=== PATIENT | male | born 1955 | race Caucasian/White ===

== ENCOUNTER 2020-01-24 15:24 | Inpatient (IN) ==
--- NOTE | 2020-01-24 15:51 | Emergency Department Note ---
Impression & Plan Bright red rectal bleeding ED Provider Note NAME: FIORELLA HERNANDEZ AGE: 64 SEX: M ARRIVES VIA: Walk-In INFORMANT: [Patient][, ] ED PROVIDER(S): Lucas Palmer MD CHIEF COMPLAINT: GI bleed PLAN: Disposition: Admitted Condition: [Good] MEDICAL DECISION MAKING: Patient presented to the ER because of acute lower GI bleeding. He had heme positive stools. Hemoglobin and white blood cell count were stable on laboratory testing. Normal platelets. His INR is slightly supratherapeutic at 3.5. Chemistry panel was unremarkable. The patient is hemodynamically stable. I did discuss the case with GI, Dr. Sanz. He recommended admission and serial monitoring of H&H. Patient was updated. He agreed with admission. [facility]. The patient was evaluated in the ER for further management. Triage Nursing notes reviewed and agree them. Vital Signs: reviewed and remarkable for [no significant abnormalities] Differential diagnosis: Diverticulosis, AVM, coagulopathy, colitis, inflammatory bowel disease, malignancy, Daniela-Combs tear, esophagitis, peptic ulcer disease, variceal bleed, gastritis, epistaxis, fissure, hemorrhoids, as well as other pathologies. ER treatment provided: Saline hydration Diagnostics interpreted by me: Cardiac Monitoring: Cardiac monitoring ordered by me: The patient was placed on continuous cardiac monitoring and observed. It revealed a normal sinus rhythm at 90 beats per minute without ectopy or evidence of dysrhythmia. Consultation(s): GI Internal medicine HPI: The patient is a 64 year old male who presents to the Emergency Room with complaints of rectal bleeding. This started this morning and is continuing. The patient also notes the following associated symptoms, loose stool. The patient has taken no medication relieving factors. Current pain is rated as 0/10. Pt denies LOC, headache, fevers, chills, diaphoresis, visual changes, neck pain, chest pain, breathing difficulties, nausea, vomiting, abdominal pain, back pain, melena, urinary symptoms, numbness, weakness, lymphadenopathy, rash, or other complaints. ROS: See above HPI for pertinent positives & negatives. A total of [10] systems reviewed and were otherwise negative. PAST MEDICAL HISTORY:[See Below] CAD, DVT PAST SURGICAL HISTORY:[See Below]coronary stent FAMILY HISTORY:[See Below] SOCIAL HISTORY:[See Below] no tobacco HOME MEDICATIONS:[See Below] ALLERGIES:[See Below] VITALS:[See Below] PHYSICAL EXAMINATION: GENERAL: Awake, alert, well-appearing, in no distress HENT: Normocephalic, atraumatic. Oropharynx unremarkable. EYES: Normal conjunctiva. Sclera non-icteric. NECK: Inspection normal. Non-tender. Supple. No nuchal rigidity. FROM. No masses. RESPIRATORY: Clear to auscultation. No wheezes. No rales. Normal respiratory effort. CARDIAC: Normal rate. Normal rhythm. No murmurs. No rubs. Extremities warm and well perfused. Pulses equal. No JVD. GI: Soft, non-distended. No tenderness to palpation. No rebound or guarding. No masses. RECTAL: Deferred. MUSCULOSKELETAL: Atraumatic. Chest examination reveals no tenderness. The back is symmetrical on inspection without obvious abnormality. There is no CVA tenderness to palpation. No joint edema. LOWER EXTREMITIES: Calves are equal size bilaterally and non-tender. No edema. No discoloration. NEURO: Normal sensorium. No sensory or motor deficits noted. SKIN: No rash or jaundice noted. ED COURSE: [Critical Care:] [None] Lucas Palmer MD Past Med/Surg History Social History Feels Safe at Home: Yes Smoking Status: Former smoker Allergies Allergies Allergy/AdvReac Type Severity Reaction Status Date / Time No Known Allergies Allergy Unknown Verified 01/24/20 16:19 Home Meds Home Medications Medication Instructions Recorded Confirmed acetaminophen [Tylenol Extra 500 - 1,000 mg PO Q6H PRN 01/24/20 01/24/20 Strength] aspirin [Aspir-81] 81 mg PO DAILY 01/24/20 01/24/20 atorvastatin [Lipitor] 80 mg PO DAILY 01/24/20 01/24/20 cyanocobalamin (vitamin B-12) 1,000 mcg PO DAILY 01/24/20 01/24/20 [Vitamin B-12] empagliflozin [Jardiance] 25 mg PO DAILY 01/24/20 01/24/20 fenofibrate nanocrystallized 48 mg PO DAILY 01/24/20 01/24/20 [Tricor] furosemide [Lasix] 20 mg PO DAILY 01/24/20 01/24/20 glimepiride [Amaryl] 2 mg PO DAILY 01/24/20 01/24/20 isosorbide mononitrate 30 mg PO DAILY 01/24/20 01/24/20 lactobacillus combination no.4 3,000 mmu cells PO DAILY 01/24/20 01/24/20 [Probiotic] losartan [Cozaar] 100 mg PO DAILY 01/24/20 01/24/20 metformin [Glucophage] 1,000 mg PO BID 01/24/20 01/24/20 metoprolol succinate [Toprol XL] 25 mg PO DAILY 01/24/20 01/24/20 nitroglycerin [Nitrostat] 0.4 mg SUBLINGUAL UD PRN 01/24/20 01/24/20 warfarin [Coumadin] 5 mg PO SUTUTHSA 01/24/20 01/24/20 warfarin [Coumadin] 7.5 mg PO MOWEFR 01/24/20 01/24/20 Results & Data (ED) Vital Signs Vital Signs - 24 hr 01/24/20 15:42 01/24/20 18:32 01/24/20 19:56 Temperature 37.0 C Temperature Source Oral Pulse Rate - Lying Pulse Rate - Sitting Pulse Rate - Standing Pulse Rate 94 H Pulse Rate [Apical] 93 H 92 H Pulse Rhythm [Apical] Regular Pulse Strength [Apical] Normal Respiratory Rate 19 Respiratory Effort / Characteristics Non-Labored Non-Labored Spontaneous Respiratory Depth Normal Normal Respiratory Pattern Regular Blood Pressure - Lying Blood Pressure - Sitting Blood Pressure- Standing Blood Pressure 118/73 Blood Pressure [Right Arm] 110/74 163/72 H Blood Pressure Mean 88 Blood Pressure Mean [Right Arm] 86 102 Blood Pressure Position [Right Arm] Sitting Pulse Oximetry 96 97 98 Oxygen Delivery Method Room Air Room Air Room Air Sepsis Recent Fever Within 48 Hours No Sepsis Action Taken by Nursing No Action Required 01/24/20 19:57 01/24/20 20:56 Temperature Temperature Source Pulse Rate - Lying 99 H Pulse Rate - Sitting 100 H Pulse Rate - Standing 103 H Pulse Rate Pulse Rate [Apical] Pulse Rhythm [Apical] Pulse Strength [Apical] Respiratory Rate Respiratory Effort / Characteristics Respiratory Depth Respiratory Pattern Blood Pressure - Lying 141/79 H Blood Pressure - Sitting 131/85 Blood Pressure- Standing 97/61 L Blood Pressure Blood Pressure [Right Arm] Blood Pressure Mean Blood Pressure Mean [Right Arm] Blood Pressure Position [Right Arm] Pulse Oximetry 99 Oxygen Delivery Method Room Air Sepsis Recent Fever Within 48 Hours Sepsis Action Taken by Nursing Laboratory Data Result diagrams: 01/24/20 16:01 01/24/20 16:01 Lab Results 01/24/20 01/24/20 01/24/20 Range/Units 16:01 16:01 16:01 WBC 8.54 (4.8-10.8) K/uL RBC 4.59 L (4.7-6.1) M/uL Hgb 14.1 (14.0-18.0) g/dL Hct 42.5 (42-52) % MCV 92.6 (80-100) fL MCH 30.7 (25-34) pg MCHC 33.2 (32-36) g/dL RDW Std Deviation 45.7 (36.4-46.3) fL RDW Coeff of Andreas 13.5 (11.5-14.5) % Plt Count 185 (130-400) K/uL MPV 10.1 (7.4-10.4) fL Immature Gran % (Auto) 0.5 % Neut % (Auto) 55.5 % Lymph % (Auto) 30.1 % [place] % (Auto) 11.6 % Eos % (Auto) 1.8 % Baso % (Auto) 0.5 % Immature Gran # (Auto) 0.04 H (0.00-0.02) K/uL Neut # (Auto) 4.75 (1.4-6.5) K/uL Lymph # (Auto) 2.57 (1.2-3.4) K/uL [place] # (Auto) 0.99 H (0.11-0.59) K/uL Eos # (Auto) 0.15 (0-0.5) K/uL Baso # (Auto) 0.04 (0-0.2) K/uL PT 34.5 H (9.0-12.0) Seconds INR 3.5 H (0.9-1.1) APTT 40.8 H (21.0-31.0) Seconds PTT Ratio 1.5 Sodium (136-145) mmol/L Potassium (3.5-5.1) mmol/L Chloride (98-107) mmol/L Carbon Dioxide (21-32) mmol/L Anion Gap (3-11) BUN (7-18) mg/dl Creatinine (0.6-1.4) mg/dl Est Cr Clr Drug Dosing ml/min Est GFR ( Amer) Est GFR (Non-Af Amer) BUN/Creatinine Ratio (10-20) Glucose (70-99) mg/dl Calcium (8.5-10.1) mg/dl Magnesium (1.8-2.4) mg/dl Total Bilirubin (0.2-1) mg/dl AST (15-37) U/L ALT (12-78) U/L Alkaline Phosphatase (45-117) U/L Total Protein (6.4-8.2) gm/dl Albumin (3.4-5.0) gm/dl Globulin (2.5-4.0) gm/dl Albumin/Globulin Ratio (0.9-2) POC Stool Occult Blood (Negative) Blood Type A Positive Antibody Screen NEGATIVE 01/24/20 01/24/20 01/24/20 Range/Units 16:01 16:01 16:32 WBC (4.8-10.8) K/uL RBC (4.7-6.1) M/uL Hgb (14.0-18.0) g/dL Hct (42-52) % MCV (80-100) fL MCH (25-34) pg MCHC (32-36) g/dL RDW Std Deviation (36.4-46.3) fL RDW Coeff of Andreas (11.5-14.5) % Plt Count (130-400) K/uL MPV (7.4-10.4) fL Immature Gran % (Auto) % Neut % (Auto) % Lymph % (Auto) % [place] % (Auto) % Eos % (Auto) % Baso % (Auto) % Immature Gran # (Auto) (0.00-0.02) K/uL Neut # (Auto) (1.4-6.5) K/uL Lymph # (Auto) (1.2-3.4) K/uL [place] # (Auto) (0.11-0.59) K/uL Eos # (Auto) (0-0.5) K/uL Baso # (Auto) (0-0.2) K/uL PT (9.0-12.0) Seconds INR (0.9-1.1) APTT (21.0-31.0) Seconds PTT Ratio Sodium 140 (136-145) mmol/L Potassium 4.1 (3.5-5.1) mmol/L Chloride 106 (98-107) mmol/L Carbon Dioxide 24 (21-32) mmol/L Anion Gap 10.0 (3-11) BUN 20 H (7-18) mg/dl Creatinine 1.26 (0.6-1.4) mg/dl Est Cr Clr Drug Dosing 80.8 ml/min Est GFR ( Amer) 68.9 Est GFR (Non-Af Amer) 59.5 BUN/Creatinine Ratio 16.0 (10-20) Glucose 172 H (70-99) mg/dl Calcium 8.5 (8.5-10.1) mg/dl Magnesium 2.0 (1.8-2.4) mg/dl Total Bilirubin 0.5 (0.2-1) mg/dl AST 21 (15-37) U/L ALT 34 (12-78) U/L Alkaline Phosphatase 41 L (45-117) U/L Total Protein 7.2 (6.4-8.2) gm/dl Albumin 3.7 (3.4-5.0) gm/dl Globulin 3.5 (2.5-4.0) gm/dl Albumin/Globulin Ratio 1.1 (0.9-2) POC Stool Occult Blood Positive A (Negative) Blood Type Antibody Screen Administered Medications Discontinued Medications Sodium Chloride (Nss) 500 mls @ 999 mls/hr IV .Q31M JAM Stop: 01/24/20 16:30 Last Infusion: 01/24/20 19:17 Dose: 0 mls/hr Documented by: [id number] Admin: 01/24/20 18:32 Dose: 999 mls/hr Documented by: [id number] Discharge Plan Visit Data Chief Complaint: Rectal Bleed Stated Complaint: RECTAL BLEEDING ED Provider: Lucas Palmer Discharge Problem: Bright red rectal bleeding Forms Stand Alone Forms: My [facility] Prescriptions Prescriptions: No Action atorvastatin [Lipitor] 80 mg tablet 80 mg PO DAILY RF: 0 isosorbide mononitrate 30 mg tablet extended release 24 hr 30 mg PO DAILY RF: 0 cyanocobalamin (vitamin B-12) [Vitamin B-12] 1,000 mcg Tablet 1,000 mcg PO DAILY RF: 0 aspirin [Aspir-81] 81 mg Tablet,Delayed Release (Dr/Ec) 81 mg PO DAILY RF: 0 acetaminophen [Tylenol Extra Strength] 500 mg Tablet 500 - 1,000 mg PO Q6H PRN (Reason: Pain) RF: 0 metformin [Glucophage] 1,000 mg tablet 1,000 mg PO BID RF: 0 warfarin [Coumadin] 5 mg tablet 5 mg PO SUTUTHSA RF: 0 warfarin [Coumadin] 5 mg tablet 7.5 mg PO MOWEFR RF: 0 nitroglycerin [Nitrostat] 0.4 mg Tablet, Sublingual 0.4 mg sublingual UD PRN (Reason: Chest Pain) RF: 0 furosemide [Lasix] 20 mg tablet 20 mg PO DAILY RF: 0 metoprolol succinate [Toprol XL] 25 mg tablet extended release 24 hr 25 mg PO DAILY RF: 0 losartan [Cozaar] 100 mg tablet 100 mg PO DAILY RF: 0 fenofibrate nanocrystallized [Tricor] 48 mg tablet 48 mg PO DAILY RF: 0 Probiotic 3 billion cell Capsule 3,000 mmu cells PO DAILY RF: 0 Jardiance 25 mg tablet 25 mg PO DAILY RF: 0 glimepiride [Amaryl] 2 mg tablet 2 mg PO DAILY RF: 0
[2020-01-24] MEDS ORDERED: SODIUM CHLORIDE 0.9% 500 ML IV SCH (16:00)
[2020-01-24 16:11] LABS: Basophils # (auto) 0.04 K/uL (0-0.2); Basophils % (auto) 0.5 %; Eosinophils # (auto) 0.15 K/uL (0-0.5); Eosinophils % (auto) 1.8 %; Hematocrit (blood only) 42.5 % (42-52); Hemoglobin 14.1 g/dL (14.0-18.0); Immature Granulocytes # (auto) 0.04 K/uL (0.00-0.02); Immature Granulocytes % (auto) 0.5 %; Lymphocytes # (auto) 2.57 K/uL (1.2-3.4); Lymphocytes % (auto) 30.1 %; Mean Corpuscular Hemoglobin 30.7 pg (25-34); Mean Corpuscular Hgb Conc 33.2 g/dL (32-36); Mean Corpuscular Volume 92.6 fL (80-100); Mean Platelet Volume 10.1 fL (7.4-10.4); Monocytes # (auto) 0.99 K/uL (0.11-0.59); Monocytes % (auto) 11.6 %; Neutrophils # (auto) 4.75 K/uL (1.4-6.5); Neutrophils % (auto) 55.5 %; Platelet Count 185 K/uL (130-400); RDW Coefficient of Variation 13.5 % (11.5-14.5); RDW Standard Deviation 45.7 fL (36.4-46.3); Red Blood Count 4.59 M/uL (4.7-6.1); White Blood Count 8.54 K/uL (4.8-10.8)
[2020-01-24 16:25] LABS: INR 3.5 (0.9-1.1); Partial Thromboplastin Ratio 1.5; Partial Thromboplastin Time 40.8 Seconds (21.0-31.0); Prothrombin Time 34.5 Seconds (9.0-12.0)
[2020-01-24 16:27] LABS: Albumin Level 3.7 gm/dl (3.4-5.0); Calcium 8.5 mg/dl (8.5-10.1); Creatinine Clr Calc Pharmacy 80.8 ml/min; Est GFR (African American) 68.9; Est GFR (Non-African American) 59.5; Potassium 4.1 mmol/L (3.5-5.1)
[2020-01-24 16:30] LABS: Albumin Globulin Ratio 1.1 (0.9-2); Bilirubin,Total 0.5 mg/dl (0.2-1); Globulin 3.5 gm/dl (2.5-4.0); Total Protein 7.2 gm/dl (6.4-8.2)
[2020-01-24] MEDS ORDERED: LACTATED RINGER'S 1,000 ML IV ONE ×2 (21:36→22:26)
--- NOTE | 2020-01-24 21:37 | History & Physical Report ---
Date of Service January 24, 2020 Assessment & Plan (1) Acute lower GI bleeding: Painless by patient's description In the setting of Coumadin coagulopathy, history recurrent DVT With some hemodynamic instability given orthostasis, hemoglobin drop from baseline of 15 Patient not septic. Rule out C. difficile Hypertension, initially elevated at the ER Positive orthostatics CAD sp CABG DM2 on oral medications, reasonable control as of recent outpatient hemoglobin A1c of 7.06 July 2019 past tobacco abuse Medical telemetry Hold Coumadin and aspirin for now. Vitamin K appropriate for L GIB secondary to Coumadin coagulopathy causing hemodynamic instability Stool C. difficile Serial H&H, transfuse PRBC if hemoglobin less than 8 and or for symptomatic anemia IVF Clear liquids for now GI consult RE L GIB (ER provider already in touch with Dr. Sanz.) Continue home beta-bianca, hold losartan for now given orthostasis. Basal insulin adjusted for clear liquid diet, ISS BG goal [id number], update hemoglobin A1c DVT prophylaxis. SCDs while Coumadin on hold if INR less than 2 Full code Text document was generated using Rach[employer] voice recognition software. It may contain grammatical or spelling errors. Kindly contact undersigned for clarification of any documentation item in question. History of Present Illness CABG CABG Chief Complaint: Bloody diarrhea Primary Care Provider: Arsenio Kellogg DO History obtained from patient, family, and records. Medical history significant for CAD that is post CABG, hypertension, recurrent DVT on Coumadin, history of central retinal vein occlusion (left eye), DM2 on oral medications, history colonic polyps/internal hemorrhoids/diverticulosis (2019 colonoscopy), past tobacco abuse. This morning patient noted painless bright red rectal bleeding which progressed to stools totaling 8 episodes so far. Denies belly pain, nausea, emesis, fever, chills. Some lightheadedness. No prior episodes. No known sick contacts/out-of-town travel. Restaurant food about a week ago, no other family members with bloody diarrhea symptoms. No recent antibiotic Rx. Patient consulted ER. Medical History as above Surgical History : CABG, eye injections, cholecystectomy, cataract surgery Family History : Stroke Personal/Social history : Past tobacco abuse, occasional EtOH intake, retired schoolteacher Allergies Allergy/AdvReac Type Severity Reaction Status Date / Time No Known Allergies Allergy Unknown Verified 01/24/20 16:19 Home Medications Home Medications Medication Instructions Recorded Confirmed Type acetaminophen [Tylenol Extra 500 - 1,000 mg PO Q6H PRN 01/24/20 01/24/20 History Strength] aspirin [Aspir-81] 81 mg PO DAILY 01/24/20 01/24/20 History atorvastatin [Lipitor] 80 mg PO DAILY 01/24/20 01/24/20 History cyanocobalamin (vitamin B-12) 1,000 mcg PO DAILY 01/24/20 01/24/20 History [Vitamin B-12] empagliflozin [Jardiance] 25 mg PO DAILY 01/24/20 01/24/20 History fenofibrate nanocrystallized 48 mg PO DAILY 01/24/20 01/24/20 History [Tricor] furosemide [Lasix] 20 mg PO DAILY 01/24/20 01/24/20 History glimepiride [Amaryl] 2 mg PO DAILY 01/24/20 01/24/20 History isosorbide mononitrate 30 mg PO DAILY 01/24/20 01/24/20 History lactobacillus combination no.4 3,000 mmu cells PO DAILY 01/24/20 01/24/20 History [Probiotic] losartan [Cozaar] 100 mg PO DAILY 01/24/20 01/24/20 History metformin [Glucophage] 1,000 mg PO BID 01/24/20 01/24/20 History metoprolol succinate [Toprol XL] 25 mg PO DAILY 01/24/20 01/24/20 History nitroglycerin [Nitrostat] 0.4 mg SUBLINGUAL UD PRN 01/24/20 01/24/20 History warfarin [Coumadin] 5 mg PO SUTUTHSA 01/24/20 01/24/20 History warfarin [Coumadin] 7.5 mg PO MOWEFR 01/24/20 01/24/20 History Past Med/Surg History Social History Preferred Language: Bermudian Communication Ability: Effective Beliefs That Will Affect Care: None Current Living Situation: Spouse Other Information That Helps Us Care for You: No Feels Safe at Home: Yes Safety Concerns: Feels Safe At This Time Smoking Status: Former smoker Hx Alcohol Use: Yes Hx Substance Use: No Review of Systems Review of Systems: As per HPI, all 10 systems reviewed, all other ROS negative Physical Exam 2 Physical Exam: GENERAL: Comfortable, pleasant, obese, no respiratory distress SKIN: Normal color, warm HEENT: [place] palpebral conjunctivae, no ptosis, dry buccal mucosa NECK : Supple, short neck, no tenderness CHEST : CTA, no tenderness HEART : RRR, no obvious murmurs ABDOMEN: distention, nontender EXTREMITIES : Chronic LE venous stasis, no LE tenderness, no other conspicuous deformities noted NEUROLOGIC : Coherent, no facial asymmetry, no other gross focality Results & Data Results & Data ([facility]) Vital Signs (Past 12 Hours) Vital Signs Temp Pulse Pulse Resp BP BP Pulse Ox 01/24/20 19:57 99 01/24/20 19:56 92 H 19 163/72 H 98 01/24/20 18:32 93 H 20 110/74 97 01/24/20 15:42 37.0 C 94 H 20 118/73 96 Laboratory Results Laboratory Results WBC 8.54 K/uL (4.8-10.8) 01/24/20 16:01 RBC 4.59 M/uL (4.7-6.1) L 01/24/20 16:01 Hgb 14.1 g/dL (14.0-18.0) 01/24/20 16:01 Hct 42.5 % (42-52) 01/24/20 16:01 MCV 92.6 fL (80-100) 01/24/20 16:01 MCH 30.7 pg (25-34) 01/24/20 16:01 MCHC 33.2 g/dL (32-36) 01/24/20 16:01 RDW Std Deviation 45.7 fL (36.4-46.3) 01/24/20 16:01 RDW Coeff of Andreas 13.5 % (11.5-14.5) 01/24/20 16:01 Plt Count 185 K/uL (130-400) 01/24/20 16:01 MPV 10.1 fL (7.4-10.4) 01/24/20 16:01 Immature Gran % (Auto) 0.5 % 01/24/20 16:01 Neut % (Auto) 55.5 % 01/24/20 16:01 Lymph % (Auto) 30.1 % 01/24/20 16:01 [place] % (Auto) 11.6 % 01/24/20 16:01 Eos % (Auto) 1.8 % 01/24/20 16:01 Baso % (Auto) 0.5 % 01/24/20 16:01 Immature Gran # (Auto) 0.04 K/uL (0.00-0.02) H 01/24/20 16:01 Neut # (Auto) 4.75 K/uL (1.4-6.5) 01/24/20 16:01 Lymph # (Auto) 2.57 K/uL (1.2-3.4) 01/24/20 16:01 [place] # (Auto) 0.99 K/uL (0.11-0.59) H 01/24/20 16:01 Eos # (Auto) 0.15 K/uL (0-0.5) 01/24/20 16:01 Baso # (Auto) 0.04 K/uL (0-0.2) 01/24/20 16:01 PT 34.5 Seconds (9.0-12.0) H 01/24/20 16:01 INR 3.5 (0.9-1.1) H 01/24/20 16:01 APTT 40.8 Seconds (21.0-31.0) H 01/24/20 16:01 PTT Ratio 1.5 01/24/20 16:01 Sodium 140 mmol/L (136-145) 01/24/20 16:01 Potassium 4.1 mmol/L (3.5-5.1) 01/24/20 16:01 Chloride 106 mmol/L (98-107) 01/24/20 16:01 Carbon Dioxide 24 mmol/L (21-32) 01/24/20 16:01 Anion Gap 10.0 (3-11) 01/24/20 16:01 BUN 20 mg/dl (7-18) H 01/24/20 16:01 Creatinine 1.26 mg/dl (0.6-1.4) 01/24/20 16:01 Est Cr Clr Drug Dosing 80.8 ml/min 01/24/20 16:01 Est GFR ( Amer) 68.9 01/24/20 16:01 Est GFR (Non-Af Amer) 59.5 01/24/20 16:01 BUN/Creatinine Ratio 16.0 (10-20) 01/24/20 16:01 Glucose 172 mg/dl (70-99) H 01/24/20 16:01 Calcium 8.5 mg/dl (8.5-10.1) 01/24/20 16:01 Magnesium 2.0 mg/dl (1.8-2.4) 01/24/20 16:01 Total Bilirubin 0.5 mg/dl (0.2-1) 01/24/20 16:01 AST 21 U/L (15-37) 01/24/20 16:01 ALT 34 U/L (12-78) 01/24/20 16:01 Alkaline Phosphatase 41 U/L (45-117) L 01/24/20 16:01 Total Protein 7.2 gm/dl (6.4-8.2) 01/24/20 16:01 Albumin 3.7 gm/dl (3.4-5.0) 01/24/20 16:01 Globulin 3.5 gm/dl (2.5-4.0) 01/24/20 16:01 Albumin/Globulin Ratio 1.1 (0.9-2) 01/24/20 16:01 POC Stool Occult Blood Positive (Negative) A 01/24/20 16:32 Blood Type A Positive 01/24/20 16:01 Antibody Screen NEGATIVE 01/24/20 16:01 Diagnostic Findings Chest x-ray as per my interpretation atelectasis EKG as per my interpretation : rate 85, NSR, RAD, T wave flattening inferior leads
[2020-01-24] MEDS ORDERED: PHYTONADIONE 10 MG in SODIUM CHLORIDE 0.9% 50 ML IV ONE (21:45)
[2020-01-24 22:00] LABS: Hematocrit (blood only) 36.5 % (42-52); Hemoglobin 11.8 g/dL (14.0-18.0)
[2020-01-24] MEDS ORDERED: DEXTROSE 50% 50 ML SYRINGE IV PRN (23:03)
[2020-01-24] MEDS ORDERED: ACETAMINOPHEN 325 MG TAB PO PRN (23:03)
[2020-01-24] MEDS ORDERED: GLUCOSE 40% GEL 15 GM TUBE PO PRN (23:03)
[2020-01-24] MEDS ORDERED: GLUCAGON FOR INJ 1 MG VIAL SQ PRN (23:03)
[2020-01-24] MEDS ORDERED: GLUCOSE 10 TABS/TUBE PO PRN (23:03)
[2020-01-24] MEDS ORDERED: CARBOHYDRATES FOR HYPOGLYCEMIA PO PRN (23:03)
[2020-01-24] MEDS ORDERED: PROMETHAZINE HCL 12.5 MG in SODIUM CHLORIDE 0.9% 50 ML IV PRN (23:03)
[2020-01-24] MEDS ORDERED: TRAMADOL HCL 50 MG TABLET PO PRN (23:03)
[2020-01-24] MEDS ORDERED: INSULIN GLARGINE SOLOSTAR 100 UNITS/ML 3 ML PEN SC STA (23:41)
[2020-01-24] MEDS: INSULIN ASPART 100 UNITS/ML 3 ML PEN SC SCH (23:41)
[2020-01-25] MEDS ORDERED: LACTATED RINGER'S 1,000 ML IV SCH ×2 (00:30→04:30)
[2020-01-25] MEDS ORDERED: INSULIN ASPART 100 UNITS/ML 3 ML PEN SC ONE (01:00)
[2020-01-25 02:16] LABS: Basophils # (auto) 0.03 K/uL (0-0.2); Basophils % (auto) 0.2 %; Eosinophils # (auto) 0.02 K/uL (0-0.5); Eosinophils % (auto) 0.2 %; Hematocrit (blood only) 32.5 % (42-52); Hemoglobin 10.8 g/dL (14.0-18.0); Immature Granulocytes % (auto) 0.8 %; Lymphocytes # (auto) 3.22 K/uL (1.2-3.4); Lymphocytes % (auto) 24.8 %; Mean Corpuscular Hemoglobin 30.5 pg (25-34); Mean Corpuscular Hgb Conc 33.2 g/dL (32-36); Mean Corpuscular Volume 91.8 fL (80-100); Mean Platelet Volume 9.9 fL (7.4-10.4); Monocytes # (auto) 0.86 K/uL (0.11-0.59); Monocytes % (auto) 6.6 %; Neutrophils # (auto) 8.75 K/uL (1.4-6.5); Neutrophils % (auto) 67.4 %; Platelet Count 175 K/uL (130-400); RDW Coefficient of Variation 13.5 % (11.5-14.5); Red Blood Count 3.54 M/uL (4.7-6.1); White Blood Count 12.98 K/uL (4.8-10.8)
[2020-01-25 02:25] LABS: INR 2.3 (0.9-1.1); Prothrombin Time 23.1 Seconds (9.0-12.0)
[2020-01-25 02:33] LABS: BUN Creatinine Ratio 14.8 (10-20); Calcium 7.8 mg/dl (8.5-10.1); Creatinine Clr Calc Pharmacy 76.5 ml/min; Est GFR (African American) 64.6; Est GFR (Non-African American) 55.7; Potassium 4.1 mmol/L (3.5-5.1)
[2020-01-25] MEDS ORDERED: SODIUM CHLORIDE 0.9% 1000ML 1,000 ML IV ONE (03:13)
[2020-01-25 04:22] LABS: Albumin Level 3.1 gm/dl (3.4-5.0)
[2020-01-25 06:09] LABS: Hematocrit (blood only) 27.9 % (42-52); Hemoglobin 9.4 g/dL (14.0-18.0)
[2020-01-25] MEDS ORDERED: LACTATED RINGER'S 1,000 ML IV ONE (06:33)
--- NOTE | 2020-01-25 06:33 | XRay Report ---
XR chest 1V portable CLINICAL HISTORY: wheeze dyspnea COMPARISON STUDY: No previous studies for comparison. FINDINGS: The bones soft tissues and hemidiaphragms are normal. The cardiomediastinal silhouette is n ormal. The lungs are clear. The pulmonary vasculature is normal. Prior median sternotomy IMPRESSION: Negative chest. ACT 112: Negative or not required by law. The above report was generated using voice recognition software. It may contain grammatical, syntax or spelling errors. Electronically signed by: Aureliano Wayne M.D. 01/25/2020 6:32 AM
[2020-01-25] MEDS ORDERED: SODIUM CHLORIDE 0.9% 250 ML IV PRN ×3 (06:35→23:42)
[2020-01-25] MEDS: METOPROLOL SUCC 25MG EXT REL TAB PO SCH (06:49)
[2020-01-25] MEDS: INSULIN ASPART 100 UNITS/ML 3 ML PEN SC SCH ×4 (08:18→20:40)
[2020-01-25] MEDS: ATORVASTATIN 40 MG TAB PO SCH (08:20)
[2020-01-25] MEDS: CYANOCOBALAMIN 500 MCG TABLET (VITAMIN B-12) PO SCH (08:20)
[2020-01-25] MEDS: ISOSORBIDE MONO EXTENDED REL 30 MG TABCR PO SCH (08:20)
--- NOTE | 2020-01-25 08:47 | Hospitalist Progress Note ---
Date of Service January 25, 2020 Assessment & Plan (1) Acute lower GI bleeding: Painless lower GI bleeding. Differential includes but is not limited to diverticular bleed vs. less likely brisk UGIB from PUD vs. hemorrhoidal or AVMs. PPI started per GI recs. Trend H/H q6h. Transfuse PRN. Tagged RBC scan was negative. Defer to GI for the need to scope him. (2) Acute blood loss anemia: Trend and transfuse PRN. (3) HTN (hypertension): Restart home losartan. (4) DMII (diabetes mellitus, type 2): cont basal bolus insulin while holding home meds. Currently slightly above inpatient goal. Will increase Lantus to 10 Units BID and add an overnight BSG check with coverage as needed. (5) CAD (coronary artery disease): s/p CABG in 2014. Denies chest pain, trouble breathing. ASA held in setting of GI bleeding. Cont medical management of CAD with BB, statin, losartan. Cont Imdur. (6) Recurrent deep vein thrombosis (DVT): takes lifelong anticoagulation with warfarin. (7) DVT prophylaxis: SCDs, warfarin reversed and currently contraindicated in setting of GI bleed. Full Code Dispo-cont hospitalization. Cici Ace DO [facility] Hospitalist Admission and Anticipated Discharge Date Admission Date: January 24, 2020 Subjective Feeling well, denies pain in abdomen today Multiple episodes of bright red blood present Pt transferred to the bedside commode and reports severe lightheadedness after having his BM mildly tachycardic denies nausea/vomiting. Reports not being ill recently, denies family h/o autoimmune disorders, denies h/o bleeding Review of Systems Review of Systems: All systems reviewed & are unremarkable except as noted in Subjective Physical Exam Physical Exam: CONSTITUTIONAL: obese, vitals as above, generally well- appearing EYES: normal conjunctivae, no scleral icterus ENT: external ear and nose normal, MMM NECK: trachea midline RESPIRATORY: clear to auscultation bilaterally, no crackles, rales or wheezes, normal respiratory effort CARDIOVASCULAR: tachy rate and rhythm, S1 and 2 heard without murmurs, gallops or rubs, no JVD, no peripheral edema GASTROINTESTINAL: soft, nontender, nondistended MUSCULOSKELETAL: strength 5/5 throughout, head is normocephalic and atraumatic SKIN: warm and dry NEUROLOGIC: CN 2-12 grossly intact, no sensory deficit, normal cognition, normal speech, no tremor. No gross focal deficits. PSYCHIATRIC: alert cooperative and oriented to person, place and time. Results & Data Results & Data ([facility]) Vital Signs (Past 12 Hours) Vital Signs Temp Pulse Pulse Pulse Resp BP BP 01/25/20 08:19 36.5 C 90 16 117/68 01/25/20 08:01 37 C 101 H 16 159/70 H 01/25/20 06:21 36.8 C 108 H 18 145/72 H 01/25/20 05:00 36.7 C 94 H 20 149/74 H 01/24/20 23:00 97 H 01/24/20 22:50 36.6 C 95 H 16 120/69 01/24/20 22:28 93 H 18 107/58 L 01/24/20 22:06 94 H 18 124/97 01/24/20 21:51 95 H 18 175/87 H Pulse Ox 01/25/20 08:19 95 01/25/20 08:01 01/25/20 06:21 96 01/25/20 05:00 97 01/24/20 23:00 01/24/20 22:50 96 01/24/20 22:28 97 01/24/20 22:06 99 01/24/20 21:51 100 Laboratory Results Short CBC 01/24/20 01/24/20 01/25/20 Range/Units 16:01 21:52 02:03 WBC 8.54 12.98 H (4.8-10.8) K/uL Hgb 14.1 11.8 L 10.8 L (14.0-18.0) g/dL Hct 42.5 36.5 L 32.5 L (42-52) % Plt Count 185 175 (130-400) K/uL 01/25/20 Range/Units 05:51 WBC (4.8-10.8) K/uL Hgb 9.4 L (14.0-18.0) g/dL Hct 27.9 L (42-52) % Plt Count (130-400) K/uL BMP 01/24/20 01/25/20 16:01 02:03 Sodium 140 140 Potassium 4.1 4.1 Chloride 106 108 H Carbon Dioxide 24 23 BUN 20 H 20 H Creatinine 1.26 1.33 Glucose 172 H 182 H Calcium 8.5 7.8 L Liver Function 01/24/20 01/25/20 Range/Units 16:01 02:03 Total Bilirubin 0.5 (0.2-1) mg/dl AST 21 (15-37) U/L ALT 34 (12-78) U/L Alkaline Phosphatase 41 L (45-117) U/L Albumin 3.7 3.1 L (3.4-5.0) gm/dl Medications Administered Current Inpatient Medications Acetaminophen (Tylenol) 650 mg PO Q4H PRN PRN Reason: Pain or Fever Stop: 02/23/20 23:02 Atorvastatin Calcium (Lipitor) 80 mg PO DAILY JAM Stop: 02/24/20 08:59 Last Admin: 01/25/20 08:20 Dose: 80 mg Documented by: Cyanocobalamin (Vitamin B-12) 1,000 mcg PO DAILY JAM Stop: 02/24/20 08:59 Last Admin: 01/25/20 08:20 Dose: 1,000 mcg Documented by: Dextrose (Dextrose 50%) 25 - 50 ml IV UD PRN; Protocol PRN Reason: Hypoglycemia Protocol Stop: 02/23/20 23:02 Glucagon (Glucagen) 1 mg SQ UD PRN; Protocol PRN Reason: Hypoglycemia Protocol Stop: 02/23/20 23:02 Glucose (Dex4 Glucose) 4 - 8 tabs PO UD PRN; Protocol PRN Reason: Hypoglycemia Protocol Stop: 02/23/20 23:02 Glucose (Glucose 40%) 15 - 30 gm PO UD PRN; Protocol PRN Reason: Hypoglycemia Protocol Stop: 02/23/20 23:02 Promethazine HCl 12.5 mg/ (Sodium Chloride) 50.5 mls @ 202 mls/hr IV Q6H PRN PRN Reason: Nausea And Vomiting Stop: 02/23/20 23:02 Lactated Ringer's (Lr) 1,000 mls @ 75 mls/hr IV .[id number] Stop: 01/25/20 19:52 Last Infusion: 01/25/20 08:05 Dose: 0 mls/hr Documented by: Sodium Chloride (Nss) 250 mls @ 15 mls/hr IV .[id number] PRN PRN Reason: For Transfusion Stop: 01/25/20 16:35 Sodium Chloride (Nss) 250 mls @ 15 mls/hr IV .[id number] PRN PRN Reason: For Transfusion Stop: 01/25/20 16:52 Insulin Aspart (Novolog Flexpen) 0 units SC ACHS [facility] Stop: 02/23/20 23:02 Last Admin: 01/25/20 08:18 Dose: 3 units Documented by: Insulin Glargine (Lantus Solostar Pen) 5 units SC HS [facility] Stop: 02/24/20 20:59 Isosorbide Mononitrate (Imdur Extended Rel) 30 mg PO DAILY [facility] Stop: 02/24/20 08:59 Last Admin: 01/25/20 08:20 Dose: 30 mg Documented by: Metoprolol Succinate (Toprol Xl) 25 mg PO DAILY [facility] Stop: 02/24/20 06:44 Last Admin: 01/25/20 06:49 Dose: 25 mg Documented by: Miscellaneous (Carbohydrates For Hypoglycemia) 15 - 30 gm PO UD PRN PRN Reason: Hypoglycemia Protocol Stop: 02/23/20 23:02 Tramadol HCl (Ultram) 25 - 50 mg PO Q4H PRN PRN Reason: Pain Stop: 02/23/20 23:02
[2020-01-25] MEDS ORDERED: METOPROLOL SUCC 25MG EXT REL TAB PO SCH (09:00)
--- NOTE | 2020-01-25 09:01 | Electrocardiogram Report ---
Test Reason : Blood Pressure : / mmHG Vent. Rate : 085 BPM Atrial Rate : 085 BPM P-R Int : 152 ms QRS Dur : 096 ms QT Int : 382 ms P-R-T Axes : 063 238 053 degrees QTc Int : 454 ms Normal sinus rhythm Right superior axis deviation Abnormal ECG When compared with ECG of 16-JUN-2003 01:05, Vent. rate has increased BY 30 BPM Confirmed by Alireza Carvalho ([id number]) on 01/25/2020 9:00:37 AM Referred By: SELF Confirmed By:Alireza Carvalho
[2020-01-25 12:38] LABS: Hematocrit (blood only) 28.9 % (42-52); Hemoglobin 9.8 g/dL (14.0-18.0)
[2020-01-25 12:47] LABS: INR 1.5 (0.9-1.1); Prothrombin Time 15.5 Seconds (9.0-12.0)
--- NOTE | 2020-01-25 15:51 | Gastrointestinal Consultation ---
Date of Consultation January 25, 2020 Assessment & Plan (1) Bright red rectal bleeding: possible diverticular bleed vs. less likely brisk UGIB from PUD vs. hemorrhoidal or AVMs. recs: obtain tagged RBC scan frantz, if positive will need endoscopic evaluation supportive care, PPI trend H/H, transfuse prn rest as per primary team Thank you for allowing me to participate in the care of this patient. History of Present Illness Attending Physician: Cici Ace, DO 64 yo male with hx CAD and CABG on coumadin for DVT here for painless hematochezia. He noted that he started passing blood per rectum and that it continued so he went to an urgent care and then came to the hospital and eventually had a syncopal episode on the toilet here at the hospital. Never had this before. Previous colonoscopy with small hemorrhoids and diverticulosis in the fall 2018. This was done by [facility]. Currently he feels well but is still having blood per rectum. labs reviewed. Allergies Allergy/AdvReac Type Severity Reaction Status Date / Time No Known Allergies Allergy Unknown Verified 01/24/20 16:19 Home Medications Home Medications Medication Instructions Recorded Confirmed Type acetaminophen [Tylenol Extra 500 - 1,000 mg PO Q6H PRN 01/24/20 01/24/20 History Strength] aspirin [Aspir-81] 81 mg PO DAILY 01/24/20 01/24/20 History atorvastatin [Lipitor] 80 mg PO DAILY 01/24/20 01/24/20 History cyanocobalamin (vitamin B-12) 1,000 mcg PO DAILY 01/24/20 01/24/20 History [Vitamin B-12] empagliflozin [Jardiance] 25 mg PO DAILY 01/24/20 01/24/20 History fenofibrate nanocrystallized 48 mg PO DAILY 01/24/20 01/24/20 History [Tricor] furosemide [Lasix] 20 mg PO DAILY 01/24/20 01/24/20 History glimepiride [Amaryl] 2 mg PO DAILY 01/24/20 01/24/20 History isosorbide mononitrate 30 mg PO DAILY 01/24/20 01/24/20 History lactobacillus combination no.4 3,000 mmu cells PO DAILY 01/24/20 01/24/20 History [Probiotic] losartan [Cozaar] 100 mg PO DAILY 01/24/20 01/24/20 History metformin [Glucophage] 1,000 mg PO BID 01/24/20 01/24/20 History metoprolol succinate [Toprol XL] 25 mg PO DAILY 01/24/20 01/24/20 History nitroglycerin [Nitrostat] 0.4 mg SUBLINGUAL UD PRN 01/24/20 01/24/20 History warfarin [Coumadin] 5 mg PO SUTUTHSA 01/24/20 01/24/20 History warfarin [Coumadin] 7.5 mg PO MOWEFR 01/24/20 01/24/20 History Patient History Social History Preferred Language: Japanese Communication Ability: Effective Beliefs That Will Affect Care: None Current Living Situation: Spouse Other Information That Helps Us Care for You: No Feels Safe at Home: Yes Safety Concerns: Feels Safe At This Time Smoking Status: Former smoker Hx Alcohol Use: Yes Hx Substance Use: No Review of Systems Constitutional: no fever, no chills and no weight loss Eyes: as per Subjective / HPI Ear, Nose, Mouth, Throat: as per Subjective / HPI Respiratory: no dyspnea and no dyspnea on exertion Cardiovascular: no chest pain and no palpitations Gastrointestinal: as per Subjective / HPI Musculoskeletal: no joint pain and no swelling Integumentary: no rash and no lesions Neurologic: no numbness and no paresthesia Psychiatric: no depression and no anxiety Endocrine: no fatigue Hematologic / Lymphatic: no easy bleeding and no easy bruising Physical Exam Constitutional: WD/WN, vitals as above Eyes: EOM intact bilaterally Neck: normal visual inspection Respiratory: normal respiratory effort, lungs clear to auscultation Cardiovascular: RRR, no murmur, no edema Gastrointestinal (Abdomen): Inspection/Auscultation: abdomen normal to inspection; abdomen not distended Percussion/Palpation: abdomen soft; abdomen nontender and no hepatosplenomegaly Musculoskeletal: Extremities: no cyanosis Gait: normal gait Skin: no rashes, warm and dry Neurologic: moves all extremities Psychiatric: A+Ox3, euthymic affect Results & Data ([facility]) Vital Signs (Past 12 Hours) Vital Signs Temp Pulse Pulse Resp BP BP Pulse Ox 01/25/20 12:09 36.7 C 107 H 20 147/53 H 98 01/25/20 10:04 36.7 C 98 H 16 150/73 H 98 01/25/20 09:04 36.7 C 92 H 16 134/75 96 01/25/20 08:34 36.4 C L 91 H 16 148/75 H 97 01/25/20 08:19 36.5 C 90 16 117/68 95 01/25/20 08:01 37 C 101 H 16 159/70 H 01/25/20 06:21 36.8 C 108 H 18 145/72 H 96 01/25/20 05:00 36.7 C 94 H 20 149/74 H 97 PG Care Time/CCT Total # of Minutes Spent Total Time Spent with Patient: Total time spent is greater than 50% in coordination of care (as documented) at patient's floor/unit and/or counseling patient: Coding Level of Care Code 16890 Initial Inpt Care Lvl 3 Diagnoses Bright red rectal bleeding K62.5
--- NOTE | 2020-01-25 18:00 | Nuclear Medicine Report ---
NUCLEAR GI BLEEDING SCAN CLINICAL HISTORY: Heme-positive stool. Drop in hemoglobin. COMPARISON STUDY: No priors. TECHNIQUE: Following the IV administration of 26.8 mCi of technetium 99m UltraTag labeled red blood c ells, nuclear bleeding scan was performed. Anterior flow images were obtained every 2 seconds for a t otal 58 seconds. Anterior static images were obtained every 5 minutes for a total of 60 minutes. FINDINGS: There is expected tracer present within the abdominal aorta, the iliac arteries, the liver, and splee n no abnormal tracer deposition is identified typical for active GI bleeding. IMPRESSION: There is no scintigraphic evidence of active GI bleeding at the time of examination. ACT 112: Negative or not required by law. Electronically signed by: Octaviano Mensah M.D. 01/25/2020 5:59 PM
[2020-01-25] MEDS ORDERED: LOSARTAN POTASSIUM 25 MG TAB PO SCH (21:00)
[2020-01-25] MEDS ORDERED: INSULIN GLARGINE SOLOSTAR 100 UNITS/ML 3 ML PEN SC SCH (21:00)
[2020-01-25 23:13] LABS: Hematocrit (blood only) 24.4 % (42-52); Hemoglobin 8.3 g/dL (14.0-18.0)
[2020-01-26] MEDS: PANTOprazole 40 MG in SYRINGE 0 ML IV SCH ×2 (00:05→08:37)
[2020-01-26] MEDS ORDERED: INSULIN ASPART 100 UNITS/ML 3 ML PEN SC ONE (01:00)
[2020-01-26 07:22] LABS: Hematocrit (blood only) 24.1 % (42-52); Hemoglobin 8.2 g/dL (14.0-18.0); Mean Corpuscular Hemoglobin 30.6 pg (25-34); Mean Corpuscular Volume 89.9 fL (80-100); Mean Platelet Volume 10.1 fL (7.4-10.4); Platelet Count 136 K/uL (130-400); RDW Coefficient of Variation 14.3 % (11.5-14.5); RDW Standard Deviation 46.9 fL (36.4-46.3); Red Blood Count 2.68 M/uL (4.7-6.1); White Blood Count 10.65 K/uL (4.8-10.8)
[2020-01-26 07:47] LABS: BUN Creatinine Ratio 16.8 (10-20); Creatinine Clr Calc Pharmacy 108.7 ml/min; Est GFR (African American) 98.2; Est GFR (Non-African American) 84.7; Potassium 3.5 mmol/L (3.5-5.1)
[2020-01-26] MEDS: INSULIN ASPART 100 UNITS/ML 3 ML PEN SC SCH ×4 (08:34→21:38)
[2020-01-26] MEDS: LOSARTAN POTASSIUM 50 MG TAB PO SCH (08:38)
[2020-01-26] MEDS: CYANOCOBALAMIN 500 MCG TABLET (VITAMIN B-12) PO SCH (08:38)
[2020-01-26] MEDS: ATORVASTATIN 40 MG TAB PO SCH (08:38)
[2020-01-26] MEDS: METOPROLOL SUCC 25MG EXT REL TAB PO SCH (08:39)
[2020-01-26] MEDS: ISOSORBIDE MONO EXTENDED REL 30 MG TABCR PO SCH (08:39)
[2020-01-26] MEDS ORDERED: INSULIN GLARGINE SOLOSTAR 100 UNITS/ML 3 ML PEN SC SCH (09:00)
--- NOTE | 2020-01-26 09:39 | Gastroenterology Progress Note ---
Date of Service January 26, 2020 Assessment & Plan (1) Acute lower GI bleeding: Pt is a 64 y/o male admitted w painless rectal bleeding started 2 days ago, syncope and anemia. No associated fever, chills, abd pain, n/v. He is on Coumadin for DVT, INR 3.5 on admission. Last colonoscopy 05/2019 - adenomatous polyp, int hemorrhoids, L sided diverticulosis. GI bleeding scan negative. Stool cx pending, Cdiff negative. No BM >12 hours. He feels "great" today. DDX: hemorrhoidal vs diverticular vs AVM bleeding. Less likely infectious or ischemic colitis - Protonix 40mg PO daily - Monitor H/H and transfuse prn - F/U stool cx - Advance diet slowly as tolerated - If rebleed will consider colonoscopy eval while admitted, otherwise recommend colonoscopy in about 4 week's time. - If developed abd pain, will obtain CT abd/pelvis - When restarting Coumadin, keep at goal INR 2-3 Admission and Anticipated Discharge Date Admission Date: January 24, 2020 Supervising Physician Co-Signing Physician Notes Attending attestation I have seen, examined this patient, and agree with the findings and above by our mid-level provider MARINA Garza, with the following additions -Looks great, doing well without signs of bleeding -Given presentation, would plan on colonoscopy tomorrow Subjective Pt reports last BM yesterday afternoon around 2P. He did have another syncopal episode yesterday while having BM. Stools were less bloody compared to when he first had rectal bleeding episode on Sunday morning. Still denies abd pain, n/v. Denies fever, chills, CP, SOB. He did receive 2U PRBC transfusion yesterday Review of Systems Review of Systems: All systems reviewed & are unremarkable except as noted in HPI & below Physical Exam Constitutional: WD/WN, vitals as above well groomed, cooperative and comfortable Eyes: PERRL, conjunctivae normal, anicteric sclerae ENMT: external ear and nose normal, oropharynx normal Respiratory: normal respiratory effort, lungs clear to auscultation Cardiovascular: RRR, no murmur, no edema Gastrointestinal (Abdomen): normal bowel sounds, soft, nontender, no hepatosplenomegaly Skin: no rashes, warm and dry no jaundice Psychiatric: A+Ox3, euthymic affect Lymphatic: no lymphedema Results & Data ([facility]) Vital Signs (Past 12 Hours) Vital Signs Temp Pulse Pulse Resp BP BP BP 01/26/20 08:45 88 01/26/20 07:18 36.9 C 88 18 149/73 H 01/26/20 03:56 36.8 C 91 H 19 103/61 01/26/20 03:38 37.0 C 92 H 16 158/71 H 01/26/20 03:30 36.8 C 88 16 143/77 H 01/26/20 02:28 36.9 C 92 H 18 128/68 01/26/20 02:21 91 H 01/26/20 01:30 36.8 C 101 H 18 161/69 H 01/26/20 01:00 36.6 C 103 H 18 181/73 H 01/26/20 00:45 37.0 C 98 H 160/69 H 01/26/20 00:24 37.0 C 101 H 18 151/76 H 01/25/20 23:00 37.2 C 101 H 22 145/66 H Pulse Ox 01/26/20 08:45 01/26/20 07:18 96 01/26/20 03:56 94 01/26/20 03:38 95 01/26/20 03:30 94 01/26/20 02:28 95 01/26/20 02:21 01/26/20 01:30 96 01/26/20 01:00 98 01/26/20 00:45 95 01/26/20 00:24 95 01/25/20 23:00 95
[2020-01-26] MEDS ORDERED: CALCIUM GLUCONATE 10% 1,000 MG in SODIUM CHLORIDE 0.9% 50 ML IV ONE (12:15)
--- NOTE | 2020-01-26 15:48 | Hospitalist Progress Note ---
Date of Service January 26, 2020 Assessment & Plan (1) Acute lower GI bleeding: Painless lower GI bleeding. Differential includes but is not limited to diverticular bleed vs hemorrhoidal or AVMs. PPI started. H/H has decreased and appears to have stabilized. Transfuse PRN. Tagged RBC scan was negative. CSP in 4 weeks as outpatient unless he rebleeds. For now, we agreed to hold warfarin until PCP follow-up in one week. (2) Acute blood loss anemia: 2/2 LGIB. Trend and transfuse PRN. Will repeat in am. (3) HTN (hypertension): at goal on home losartan (4) DMII (diabetes mellitus, type 2): home meds held. Glucose uncontrolled in the 200s. Tighten control today and reduce correction scale to 120-160. Also increase Lantus to 15 Units BID starting tonight. I expect that he will need additional coverage as he is now eating more. (5) CAD (coronary artery disease): s/p CABG in 2014. Denies chest pain, trouble breathing. ASA held in setting of GI bleeding. Cont medical management of CAD with BB, statin, losartan. Cont Imdur. (6) Recurrent deep vein thrombosis (DVT): takes lifelong anticoagulation with warfarin. Holding until outpatient follow-up as above. (7) Hypocalcemia: gave 1 gm IV calcium (8) DVT prophylaxis: SCDs, warfarin reversed and currently contraindicated in setting of GI bleed. Full Code Dispo-cont hospitalization. [facility] Ad[facility] and Anticipated Discharge Date Admission Date: January 24, 2020 Subjective Feeling well today Soft, brown stool this afternoon Bleeding stopped overnight Feels better in general ROS otherwise negative Tolerating PO Review of Systems Review of Systems: All systems reviewed & are unremarkable except as noted in Subjective Physical Exam Physical Exam: CONSTITUTIONAL: obese, vitals as above, generally well- appearing EYES: normal conjunctivae, no scleral icterus ENT: external ear and nose normal, MMM NECK: trachea midline RESPIRATORY: clear to auscultation bilaterally, no crackles, rales or wheezes, normal respiratory effort CARDIOVASCULAR: reg rate and rhythm, S1 and 2 heard without murmurs, gallops or rubs, no JVD, no peripheral edema GASTROINTESTINAL: soft, nontender, nondistended MUSCULOSKELETAL: strength 5/5 throughout, head is normocephalic and atraumatic SKIN: warm and dry NEUROLOGIC: CN 2-12 grossly intact, no sensory deficit, normal cognition, normal speech, no tremor. No gross focal deficits. PSYCHIATRIC: alert cooperative and oriented to person, place and time. Results & Data Results & Data ([facility]) Vital Signs (Past 12 Hours) Vital Signs Temp Pulse Pulse Resp BP Pulse Ox 01/26/20 15:44 37.2 C 90 22 127/63 95 01/26/20 11:31 36 C L 84 18 108/60 96 01/26/20 08:45 88 01/26/20 07:18 36.9 C 88 18 149/73 H 96 01/26/20 03:56 36.8 C 91 H 19 103/61 94 Laboratory Results Short CBC 01/25/20 01/26/20 Range/Units 22:56 06:31 WBC 10.65 (4.8-10.8) K/uL Hgb 8.3 L 8.2 L (14.0-18.0) g/dL Hct 24.4 L 24.1 L (42-52) % Plt Count 136 (130-400) K/uL [facility] 01/26/20 06:31 Sodium 139 Potassium 3.5 Chloride 107 Carbon Dioxide 25 BUN 16 Creatinine 0.94 D Glucose 179 H Calcium 7.0 L Medications Administered Current Inpatient Medications Acetaminophen (Tylenol) 650 mg PO Q4H PRN PRN Reason: Pain or Fever Stop: 02/23/20 23:02 Atorvastatin Calcium (Lipitor) 80 mg PO DAILY JAM Stop: 02/24/20 08:59 Last Admin: 01/26/20 08:38 Dose: 80 mg Documented by: Cyanocobalamin (Vitamin B-12) 1,000 mcg PO DAILY JAM Stop: 02/24/20 08:59 Last Admin: 01/26/20 08:38 Dose: 1,000 mcg Documented by: Dextrose (Dextrose 50%) 25 - 50 ml IV UD PRN; Protocol PRN Reason: Hypoglycemia Protocol Stop: 02/23/20 23:02 Glucagon (Glucagen) 1 mg SQ UD PRN; Protocol PRN Reason: Hypoglycemia Protocol Stop: 02/23/20 23:02 Glucose (Dex4 Glucose) 4 - 8 tabs PO UD PRN; Protocol PRN Reason: Hypoglycemia Protocol Stop: 02/23/20 23:02 Glucose (Glucose 40%) 15 - 30 gm PO UD PRN; Protocol PRN Reason: Hypoglycemia Protocol Stop: 02/23/20 23:02 Promethazine HCl 12.5 mg/ (Sodium Chloride) 50.5 mls @ 202 mls/hr IV Q6H PRN PRN Reason: Nausea And Vomiting Stop: 02/23/20 23:02 Insulin Aspart (Novolog Flexpen) 0 units SC ACHS [facility] Stop: 02/23/20 23:02 Last Admin: 01/26/20 12:34 Dose: 6 units Documented by: Insulin Glargine (Lantus Solostar Pen) 15 units SC BID [facility] Stop: 02/25/20 20:59 Isosorbide Mononitrate (Imdur Extended Rel) 30 mg PO DAILY [facility] Stop: 02/24/20 08:59 Last Admin: 01/26/20 08:39 Dose: 30 mg Documented by: Losartan Potassium (Cozaar) 100 mg PO QAM [facility] Stop: 02/25/20 08:59 Last Admin: 01/26/20 08:38 Dose: 100 mg Documented by: Metoprolol Succinate (Toprol Xl) 25 mg PO DAILY [facility] Stop: 02/24/20 06:44 Last Admin: 01/26/20 08:39 Dose: 25 mg Documented by: Miscellaneous (Carbohydrates For Hypoglycemia) 15 - 30 gm PO UD PRN PRN Reason: Hypoglycemia Protocol Stop: 02/23/20 23:02 Pantoprazole Sodium (Protonix) 40 mg PO QAM [facility] Stop: 02/26/20 08:59 Tramadol HCl (Ultram) 25 - 50 mg PO Q4H PRN PRN Reason: Pain Stop: 02/23/20 23:02
[2020-01-26] MEDS: INSULIN GLARGINE SOLOSTAR 100 UNITS/ML 3 ML PEN SC SCH (21:37)
[2020-01-27 07:07] LABS: Hemoglobin 7.3 g/dL (14.0-18.0); Mean Corpuscular Hemoglobin 30.4 pg (25-34); Mean Corpuscular Hgb Conc 33.2 g/dL (32-36); Mean Corpuscular Volume 91.7 fL (80-100); Mean Platelet Volume 9.7 fL (7.4-10.4); Platelet Count 121 K/uL (130-400); RDW Coefficient of Variation 14.2 % (11.5-14.5); RDW Standard Deviation 47.2 fL (36.4-46.3); White Blood Count 8.21 K/uL (4.8-10.8)
[2020-01-27 07:32] LABS: BUN Creatinine Ratio 12.2 (10-20); Calcium 7.5 mg/dl (8.5-10.1); Creatinine Clr Calc Pharmacy 78.2 ml/min; Est GFR (African American) 65.8; Est GFR (Non-African American) 56.7; Potassium 3.3 mmol/L (3.5-5.1)
[2020-01-27] MEDS: ATORVASTATIN 40 MG TAB PO SCH (08:08)
[2020-01-27] MEDS: METOPROLOL SUCC 25MG EXT REL TAB PO SCH (08:19)
[2020-01-27] MEDS: LOSARTAN POTASSIUM 50 MG TAB PO SCH (08:20)
[2020-01-27] MEDS: CYANOCOBALAMIN 500 MCG TABLET (VITAMIN B-12) PO SCH (08:20)
[2020-01-27] MEDS: ISOSORBIDE MONO EXTENDED REL 30 MG TABCR PO SCH (08:22)
[2020-01-27] MEDS: INSULIN GLARGINE SOLOSTAR 100 UNITS/ML 3 ML PEN SC SCH (08:23)
[2020-01-27] MEDS: INSULIN ASPART 100 UNITS/ML 3 ML PEN SC SCH ×3 (08:23→17:36)
[2020-01-27] MEDS ORDERED: ACETAMINOPHEN 325 MG TAB PO SCH (08:59)
[2020-01-27] MEDS ORDERED: SODIUM CHLORIDE 0.9% 250 ML IV PRN (08:59)
[2020-01-27] MEDS ORDERED: PANTOprazole 40 MG TAB PO SCH (09:00)
[2020-01-27] MEDS ORDERED: POTASSIUM CHLORIDE 20 MEQ TABCR PO STA (09:03)
--- NOTE | 2020-01-27 11:08 | Hospitalist Progress Note ---
Date of Service January 27, 2020 Assessment & Plan (1) Acute lower GI bleeding: Painless lower GI bleeding. Differential includes but is not limited to diverticular bleed vs hemorrhoidal or AVMs. PPI started. H/H has decreased and appears to have stabilized. Transfuse PRN. Tagged RBC scan was negative. CSP in 4 weeks as outpatient unless he rebleeds. For now, we agreed to hold warfarin until PCP follow-up in one week. (2) Acute blood loss anemia: 2/2 LGIB. Trend and transfuse PRN. Will repeat in am. (3) HTN (hypertension): at goal on home losartan (4) DMII (diabetes mellitus, type 2): home meds held. Glucose uncontrolled in the 200s. Tighten control today and reduce correction scale to 120-160. Also increase Lantus to 15 Units BID starting tonight. I expect that he will need additional coverage as he is now eating more. (5) CAD (coronary artery disease): s/p CABG in 2014. Denies chest pain, trouble breathing. ASA held in setting of GI bleeding. Cont medical management of CAD with BB, statin, losartan. Cont Imdur. (6) Recurrent deep vein thrombosis (DVT): takes lifelong anticoagulation with warfarin. Holding until outpatient follow-up as above. (7) Hypocalcemia: gave 1 gm IV calcium (8) DVT prophylaxis: SCDs, warfarin reversed and currently contraindicated in setting of GI bleed. Full Code Dispo-cont hospitalization. Cici Ace DO [facility] Hospitalist (9) Hemorrhage secondary to anti-coagulation: (10) Hypokalemia: Admission and Anticipated Discharge Date Admission Date: January 24, 2020 Physical Exam Physical Exam: CONSTITUTIONAL: obese, vitals as above, generally well-appe aring EYES: normal conjunctivae, no scleral icterus ENT: external ear and nose normal, MMM NECK: trachea midline RESPIRATORY: clear to auscultation bilaterally, no crackles, rales or wheezes, normal respiratory effort CARDIOVASCULAR: reg rate and rhythm, S1 and 2 heard without murmurs, gallops or rubs, no JVD, no peripheral edema GASTROINTESTINAL: soft, nontender, nondistended MUSCULOSKELETAL: strength 5/5 throughout, head is normocephalic and atraumatic SKIN: warm and dry NEUROLOGIC: CN 2-12 grossly intact, no sensory deficit, normal cognition, normal speech, no tremor. No gross focal deficits. PSYCHIATRIC: alert cooperative and oriented to person, place and time. Results & Data Results & Data ([facility]) Vital Signs (Past 12 Hours) Vital Signs Temp Pulse Resp BP Pulse Ox 01/27/20 07:00 36.8 C 80 20 137/77 95 01/26/20 23:54 37.4 C 109 H 18 119/57 L 96 Laboratory Results Short CBC 01/27/20 Range/Units 06:19 WBC 8.21 (4.8-10.8) K/uL Hgb 7.3 L (14.0-18.0) g/dL Hct 22.0 L (42-52) % Plt Count 121 L (130-400) K/uL BMP 01/27/20 06:19 Sodium 140 Potassium 3.3 L Chloride 107 Carbon Dioxide 27 BUN 16 Creatinine 1.31 D Glucose 165 H Calcium 7.5 L Medications Administered Current Inpatient Medications Acetaminophen (Tylenol) 650 mg PO Q4H PRN PRN Reason: Pain or Fever Stop: 02/23/20 23:02 Acetaminophen (Tylenol) 650 mg PO PRE-TREAT JAM Stop: 01/27/20 15:00 Atorvastatin Calcium (Lipitor) 80 mg PO DAILY JAM Stop: 02/24/20 08:59 Last Admin: 01/27/20 08:08 Dose: 80 mg Documented by: Cyanocobalamin (Vitamin B-12) 1,000 mcg PO DAILY JAM Stop: 02/24/20 08:59 Last Admin: 01/27/20 08:20 Dose: 1,000 mcg Documented by: Dextrose (Dextrose 50%) 25 - 50 ml IV UD PRN; Protocol PRN Reason: Hypoglycemia Protocol Stop: 02/23/20 23:02 Diphenhydramine HCl (Benadryl Capsule) 25 mg PO PRE-TREAT JAM Stop: 01/27/20 15:00 Glucagon (Glucagen) 1 mg SQ UD PRN; Protocol PRN Reason: Hypoglycemia Protocol Stop: 02/23/20 23:02 Glucose (Dex4 Glucose) 4 - 8 tabs PO UD PRN; Protocol PRN Reason: Hypoglycemia Protocol Stop: 02/23/20 23:02 Glucose (Glucose 40%) 15 - 30 gm PO UD PRN; Protocol PRN Reason: Hypoglycemia Protocol Stop: 02/23/20 23:02 Promethazine HCl 12.5 mg/ (Sodium Chloride) 50.5 mls @ 202 mls/hr IV Q6H PRN PRN Reason: Nausea And Vomiting Stop: 02/23/20 23:02 Sodium Chloride (Nss) 250 mls @ 15 mls/hr IV .[id number] PRN PRN Reason: For Transfusion Stop: 01/27/20 18:59 Insulin Aspart (Novolog Flexpen) 0 units SC ACHS [facility] Stop: 02/23/20 23:02 Last Admin: 01/27/20 08:23 Dose: 10 units Documented by: Insulin Glargine (Lantus Solostar Pen) 15 units SC BID [facility] Stop: 02/25/20 20:59 Last Admin: 01/27/20 08:23 Dose: 15 units Documented by: Isosorbide Mononitrate (Imdur Extended Rel) 30 mg PO DAILY [facility] Stop: 02/24/20 08:59 Last Admin: 01/27/20 08:22 Dose: 30 mg Documented by: Losartan Potassium (Cozaar) 100 mg PO QAM [facility] Stop: 02/25/20 08:59 Last Admin: 01/27/20 08:20 Dose: 100 mg Documented by: Metoprolol Succinate (Toprol Xl) 25 mg PO DAILY [facility] Stop: 02/24/20 06:44 Last Admin: 01/27/20 08:19 Dose: 25 mg Documented by: Miscellaneous (Carbohydrates For Hypoglycemia) 15 - 30 gm PO UD PRN PRN Reason: Hypoglycemia Protocol Stop: 02/23/20 23:02 Pantoprazole Sodium (Protonix) 40 mg PO QAM [facility] Stop: 02/26/20 08:59 Last Admin: 01/27/20 08:20 Dose: 40 mg Documented by: Tramadol HCl (Ultram) 25 - 50 mg PO Q4H PRN PRN Reason: Pain Stop: 02/23/20 23:02
--- NOTE | 2020-01-27 11:56 | Gastroenterology Progress Note ---
Date of Service January 27, 2020 Assessment & Plan (1) Acute lower GI bleeding: Pt is a 64 y/o male admitted w painless rectal bleeding started 3 days ago, syncope and anemia. No associated fever, chills, abd pain, n/v. He is on Coumadin for DVT, INR 3.5 on admission. Last colonoscopy 05/2019 - adenomatous polyp, int hemorrhoids, L sided diverticulosis. GI bleeding scan negative. Stool cx pending, Cdiff negative. No BM >12 hours. He feels "great" today. DDX: hemorrhoidal vs diverticular vs AVM bleeding. Less likely infectious or ischemic colitis Blood ct dropped this AM though he had brown stools w/o more rectal bleeding and benign abd exam. - Additional PRBC transfusion will be given today per hospitalist's direction - He would like to go home and refused inpt endoscopic workup. He is agreeable to get repeat CBC checked within 2 days after DC. We scheduled him for outpt Colonoscopy on 02/03/2020 at 12:45p with Dr. Isabelle Melton. May hold Coumadin until after Colonoscopy is completed. He is advised to return to ED if he has any symptoms of light headedness, dizziness, syncope, CP, SOB or more rectal bleeding Admission and Anticipated Discharge Date Admission Date: January 24, 2020 Supervising Physician Co-Signing Physician Notes Attending attestation I have seen, examined this patient, and agree with the findings and above by our mid-level provider MARINA Garza, with the following additions Plan for colonoscopy, however patient declined, now having brown stool and wants to be discharged to see family is in town. Okay with that plan assuming close CBC follow-up, and hold his Coumadin until after colonoscopy as an outpatient in a few days Subjective Pt had another BM this AM w/o rectal bleeding. Also denies abd pain, n/v. Tolerating solid meals. Hgb down to 7.3 this AM Review of Systems Review of Systems: All systems reviewed & are unremarkable except as noted in HPI & below Physical Exam Constitutional: WD/WN, vitals as above well groomed, cooperative and comfortable Eyes: PERRL, conjunctivae normal, anicteric sclerae ENMT: external ear and nose normal, oropharynx normal Respiratory: normal respiratory effort, lungs clear to auscultation Cardiovascular: RRR, no murmur, no edema Gastrointestinal (Abdomen): normal bowel sounds, soft, nontender, no hepatosplenomegaly Skin: no rashes, warm and dry no jaundice Psychiatric: A+Ox3, euthymic affect Lymphatic: no lymphedema Results & Data ([facility]) Vital Signs (Past 12 Hours) Vital Signs Temp Pulse Pulse Resp BP BP Pulse Ox 01/27/20 11:41 36.8 C 82 18 133/66 97 01/27/20 11:17 37.1 C 79 20 159/68 H 98 01/27/20 07:00 36.8 C 80 20 137/77 95 01/26/20 23:54 37.4 C 109 H 18 119/57 L 96
[2020-01-27 18:03] LABS: Hematocrit (blood only) 30.5 % (42-52); Hemoglobin 10.1 g/dL (14.0-18.0)
--- NOTE | 2020-01-27 20:07 | Discharge Summary ---
Date of Service January 27, 2020 Admission HPI Per Admitting Provider History obtained from patient, family, and records. Medical history significant for CAD that is post CABG, hypertension, recurrent DVT on Coumadin, history of central retinal vein occlusion (left eye), DM2 on oral medications, history colonic polyps/internal hemorrhoids/diverticulosis (2019 colonoscopy), past tobacco abuse. This morning patient noted painless bright red rectal bleeding which progressed to stools totaling 8 episodes so far. Denies belly pain, nausea, emesis, fever, chills. Some lightheadedness. No prior episodes. No known sick contacts/out-of-town travel. Restaurant food about a week ago, no other family members with bloody diarrhea symptoms. No recent antibiotic Rx. Patient consulted ER. Medical History as above Surgical History : CABG, eye injections, cholecystectomy, cataract surgery Family History : Stroke Personal/Social history : Past tobacco abuse, occasional EtOH intake, retired schoolteacher Admission Exam Per Admitting Provider GENERAL: Comfortable, pleasant, obese, no respiratory distress SKIN: Normal color, warm HEENT: [place] palpebral conjunctivae, no ptosis, dry buccal mucosa NECK : Supple, short neck, no tenderness CHEST : CTA, no tenderness HEART : RRR, no obvious murmurs ABDOMEN: distention, nontender EXTREMITIES : Chronic LE venous stasis, no LE tenderness, no other conspicuous deformities noted NEUROLOGIC : Coherent, no facial asymmetry, no other gross focality Principal Diagnosis Lower GI bleeding Acute blood loss anemia Discharge Exam CONSTITUTIONAL: obese, vitals as above, generally well-appearing EYES: normal conjunctivae, no scleral icterus ENT: external ear and nose normal, MMM NECK: trachea midline RESPIRATORY: clear to auscultation bilaterally, no crackles, rales or wheezes, normal respiratory effort CARDIOVASCULAR: reg rate and rhythm, S1 and 2 heard without murmurs, gallops or rubs, no JVD, no peripheral edema GASTROINTESTINAL: soft, nontender, nondistended MUSCULOSKELETAL: strength 5/5 throughout, head is normocephalic and atraumatic SKIN: warm and dry NEUROLOGIC: CN 2-12 grossly intact, no sensory deficit, normal cognition, normal speech, no tremor. No gross focal deficits. PSYCHIATRIC: alert cooperative and oriented to person, place and time. Discharge Data Allergies Allergy/AdvReac Type Severity Reaction Status Date / Time No Known Allergies Allergy Unknown Verified 01/24/20 16:19 Consultations 01/24/20 20:55 ED Decision to Admit Stat 01/24/20 23:03 Consult Gastroenterology Routine Hospital Course (1) Hemorrhage secondary to anti-coagulation: (2) Acute lower GI bleeding: (3) Acute blood loss anemia: 64-year-old man on Coumadin for history of recurrent DVT presented with painless lower GI bleeding. Blood pressure was initially elevated in the ER and he had positive orthostatic vital signs with a resting heart rate in the 90s. He has a history of CAD status post CABG and is a diabetic on oral medications with a recent A1c of 7.1 in July 2019. [facility] and aspirin were [facility]. Initial H&H was 14.1/42.5 which fell to 10.8/32.5 within 12 hours. One unit of blood was transfused. Initial INR was 3.5. He was given vitamin K in the setting of active bleeding causing hemodynamic instability. Initial blood chemistry revealed normal electrolytes, normal kidney function, normal LFTs, normal protein and a procalcitonin of 0.06. Initial lactate was 3.5 which trended up to 4.6 and came down to 1.5 the following morning. Clear liquids were given and GI was consulted. A tagged red blood cell scan was recommended and and was negative. GI considered in the differential possible diverticular bleed versus less likely a brisk upper GI bleed from peptic ulcer disease versus hemorrhoids versus AVMs. He was started on Protonix and was transitioned to Protonix 40 mg daily. His last colonoscopy was May 2019 revealing at in an adenomatous polyp, internal hemorrhoids, left-sided diverticulosis. Stool culture with C. difficile was checked and negative. On hospital day 3 his bleeding stopped and his diet was advanced. He had no further overt bleeding per rectum during this hospitalization. Although GI recommended inpatient endoscopic work-up he declined on account of requesting discharge as soon as able as he had guests in town. At time of discharge he denied any lightheadedness, dizziness, syncope, chest pain, shortness of breath or persistent rectal bleeding, however, recheck of his H/H that morning revealed 7.3/22. He was transfused an additional two units of blood for a total of four units total during this hospitalization. Close primary care follow-up was recommended. He was sent home in stable condition on aspirin off warfarin until follow-up. Total Time Total Time Spent Total Time Spent (In Minutes): 60 Total Time Includes: Examination of the Patient, Discharge Planning, Medication Reconciliation and Communication With Other Providers Discharge Plan Discharge Items Patient Disposition: Home - Self-Care Reason For Visit: LGIB Discharge Diagnosis: Lower GI bleeding Acute blood loss anemia Condition on Discharge: Good Activity: Resume your previous activity Non-emergency contact: Primary Care Provider Call non-emergency contact if: you have any medication questions, your symptoms worsen, your pain is not controlled, your pain is worsening, your pain is unusual for you, your pain is concerning for you and you have a fever Follow-up/Referrals: Arsenio Kellogg, [Primary Care Provider] - Diet: Carb Consistent or DM2 and Low Fiber Addtl Attending Provider Instructions: Please take all medications as instructed on discharge list below. Please follow-up with [facility] Gastroenterology as instructed. It is recommended that you follow-up with your primary care provider within one week of discharge from the hospital. If you do not follow-up for these appointments, you will need to have you blood checked within one week of discharge at a minimum, which may be ordered by your primary care physician. If you experience further bleeding, lightheadedness, chest pain, fever, abdominal pain or other concerning symptom, please seek immediate medical attention. It was a pleasure taking care of you! Please call if you have any questions or problems. You can reach a [facility] hospitalist on duty at [facility] 24 hours a day by calling [phone]. Take care of yourself. Cici Ace, [facility] Hospitalist Pending Studies at Discharge: Yes Studies:: H/H Stand-Alone Forms: My [facility] AeroFS, Smoking Cessation Medications and DC Order Prescriptions: New pantoprazole 40 mg Tablet,Delayed Release (Dr/Ec) 40 mg PO QAM Qty: 30 RF: 2 Continued atorvastatin [Lipitor] 80 mg tablet 80 mg PO DAILY RF: 0 isosorbide mononitrate 30 mg tablet extended release 24 hr 30 mg PO DAILY RF: 0 cyanocobalamin (vitamin B-12) [Vitamin B-12] 1,000 mcg Tablet 1,000 mcg PO DAILY RF: 0 aspirin [Aspir-81] 81 mg Tablet,Delayed Release (Dr/Ec) 81 mg PO DAILY RF: 0 acetaminophen [Tylenol Extra Strength] 500 mg Tablet 500 - 1,000 mg PO Q6H PRN (Reason: Pain) RF: 0 metformin [Glucophage] 1,000 mg tablet 1,000 mg PO BID RF: 0 nitroglycerin [Nitrostat] 0.4 mg Tablet, Sublingual 0.4 mg sublingual UD PRN (Reason: Chest Pain) RF: 0 furosemide [Lasix] 20 mg tablet 20 mg PO DAILY RF: 0 metoprolol succinate [Toprol XL] 25 mg tablet extended release 24 hr 25 mg PO DAILY RF: 0 losartan [Cozaar] 100 mg tablet 100 mg PO DAILY RF: 0 fenofibrate nanocrystallized [Tricor] 48 mg tablet 48 mg PO DAILY RF: 0 Probiotic 3 billion cell Capsule 3,000 mmu cells PO DAILY RF: 0 Jardiance 25 mg tablet 25 mg PO DAILY RF: 0 glimepiride [Amaryl] 2 mg tablet 2 mg PO DAILY RF: 0 Discontinued warfarin [Coumadin] 5 mg tablet 5 mg PO SUTUTHSA RF: 0 warfarin [Coumadin] 5 mg tablet 7.5 mg PO MOWEFR RF: 0 Discharge Orders: Discharge Order (Routine); Ordered 01/27/20 Ordered By: Cici Ace Admission Data Admit Date/Time: 01/24/20 21:38 Attending Provider: Cici Ace Admit Provider: Art Strickland Primary Care Provider: Arsenio Kellogg Other Providers: Christ Sanz Other Interventions: Discharge Summary Assessment (RN) Last Done: 01/27/20 17:50 DC Date/Time DO NOT enter until pt leaves facility: 01/27/20 18:27
== END 2020-01-27 18:27 | disposition home or self-care (01) | DRG 813 ==
LOC: ED 15:24 → 2N 21:38 → SUATTDRO 21:38 → 2N 22:04